=== PATIENT | female | born 1930 | race Caucasian/White ===

== ENCOUNTER → 2017-02-08 | Outpatient (CLI) | payer MEDICARE, OTHER ==
[~2017-02-08] VITALS: Ht 157.5 cm; Wt 70.7 kg
[~2017-02-08] MED LIST: CALC-1072 PO CHEW; CARV6.25 PO; CLOP75TA33 PO; LISI-621 PO; NITR0.4T39 SL; ONDA4TAB7 PO; PRAV80TA23 PO; PROP15DR OP; SALINE FLUSH 10ml SYRINGE ONE; UBID200C32 PO; VIT-10 PO; WARF5TAB6 PO
--- NOTE | 2017-02-10 08:47 | TREADF ---
DATE OF PROCEDURE February 08, 2017 PROCEDURE Treadmill Myoview. INDICATION Chest pain. IMPRESSION 1. Baseline EKG shows sinus rhythm with right bundle branch block and PVCs. 2. She walked a total of 5 minutes into stage II Eleazar protocol. 3. 85% predicted maximal heart rate was exceeded. 4. She reported no angina. 5. Hemodynamic response to exercise was appropriate. 6. 13.0 mCi of Myoview was given for rest images and 31.6 mCi for stress images. 7. There were no ischemic EKG changes. 8. There were no arrhythmias. 9. Nuclear perfusion images revealed normal coronary perfusion with no scar or ischemia. 10. Quantitative ejection fraction is 73%. MTDD
== END ==
LOC: IMA 13:14
PROVIDERS: ATTEND Internal Medicine Cardiovascular Disease
DX: I49.3 Ventricular premature depolarization (principal); I45.10 Unspecified right bundle-branch block; R07.2 Precordial pain
CPT/HCPCS: 78452; 93017; A9502

== ENCOUNTER → 2017-02-10 | Outpatient (CLI) | payer MEDICARE, OTHER ==
[~2017-02-10] MED LIST changes: -SALINE FLUSH 10ml SYRINGE ONE
--- NOTE | 2017-02-10 18:23 | ECHOF ---
DATE OF PROCEDURE 02/10/2017 INDICATION This is a two-dimensional echo with spectral Doppler, color-flow, and M-mode. It was obtained in a patient with chest pain. DESCRIPTION OF PROCEDURE Left atrial dimension is normal. Left ventricular end-diastolic dimension is normal. Left ventricular wall thickness is normal. LV systolic function is normal with ejection fraction of 65%. Right atrium is normal. Right ventricle is normal. Aortic root dimension is normal. Mitral valve annulus is calcified. Mitral valve leaflets are normal with mild mitral regurgitation. Aortic valve is a trileaflet structure with no stenosis. Trace of aortic insufficiency is present. Tricuspid valve shows mild tricuspid regurgitation with normal estimated pulmonary artery systolic pressure of 32. Pulmonary valve shows mild pulmonary insufficiency. There is no pericardial effusion. IMPRESSION 1. Normal LV systolic function with ejection fraction of about 65%. 2. Mitral annulus calcification with mild mitral regurgitation. 3. Trace of aortic insufficiency. 4. Mild tricuspid regurgitation with normal estimated pulmonary artery systolic pressure of 32. 5. Mild pulmonary insufficiency. MTDD
== END ==
LOC: IMA 13:51
PROVIDERS: ATTEND Internal Medicine Cardiovascular Disease
DX: I08.8 Other rheumatic multiple valve diseases (principal); R07.2 Precordial pain
CPT/HCPCS: 93306

== ENCOUNTER 2018-01-10 09:50 | Observation (INO) ==
--- OUTSIDE RECORDS SUMMARY | 2018-01-10 10:12 | External Medical Summary | Clinical Summary ---
:1930 Author Organization [facility] Address [address] [address] Phone Care Team Providers Name Role Phone Treva Monroy PA-C Primary Care Provider Allergies Active Allergy Reactions Severity Noted Date Comments Codeine Other (See Comments) 11/12/2012 "goofy" Rosuvastatin Other (See Comments) 01/26/2016 Muscle weakness/Myalgias Demerol Other (See Comments) 11/12/2012 "goofy" Atorvastatin Other (See Comments) 11/28/2013 Myalgias/Muscle Weakness Oxycodone Hcl Other (See Comments) 11/12/2012 "goofy" Current Medications Prescription Sig. Disp. Refills Start Date End Date Status Coenzyme Q10 (COQ-10) Take 1 capsule Active 200 MG CAPS by mouth daily. Reported on 09/29/2016 lisinopril Take 1 tablet 30 tablet 11 12/02/2014 Active (PRINIVIL,ZESTRIL) 20 MG (20 mg total) by tablet mouth nightly. Calcium Take 1 tablet by Active Carb-Cholecalciferol mouth. Reported (CALTRATE 600+D SOFT) on 09/29/2016 600-800 MG-UNIT CHEW polyethyl glycol-propyl 1 drop 3 (three) Active glycol (SYSTANE) 0.4-0.3 times daily as % ophthalmic solution needed. nitroglycerin Place 1 tablet 25 tablet 11 10/14/2015 Active (NITROQUICK) 0.4 MG SL (0.4 mg total) tablet under the tongue every 5 (five) minutes as needed for Chest pain (angina/chest pain). clopidogrel (PLAVIX) 75 Take 1 tablet 90 tablet 3 01/08/2016 Active MG tablet (75 mg total) by mouth daily. pravastatin (PRAVACHOL) Take 1 tablet 30 tablet 11 01/27/2016 Active 80 MG tabletIndications: (80 mg total) by Ischemic Heart Disease mouth at bedtime. Indications: Ischemic Heart Disease carvedilol (COREG) 6.25 Take 6.25 mg by Active MG tablet mouth daily. warfarin (COUMADIN) 5 MG Take 5 mg by Active tablet mouth. 1 tablet 3 days a week, 1/2 tablet 4 days a week. loratadine (CLARITIN) 10 Take 10 mg by Active MG tablet mouth as needed for Allergies. diphenhydrAMINE Take 25 mg by Active (BENADRYL) 25 mg capsule mouth every 6 (six) hours as needed for Itching. Active Problems Problem Noted Date Atrial fibrillation with RVR ([facility]) 01/26/2016 NSTEMI (non-ST elevated myocardial infarction) ([facility]) 10/12/2015 HTN (hypertension) 03/26/2015 Dyslipidemia 03/26/2015 CAD (coronary artery disease) 03/26/2015 Atrial fibrillation with rapid ventricular response ([facility]) 11/12/2012 ACS (acute coronary syndrome) ([facility]) 11/12/2012 Immunizations Name Dates Previously Given Next Due Influenza IIV3 PFree 08/14/2015, 08/15/2012 Pneumococcal Polysaccharide (23-valent) 11/13/2008 Family History Medical History Relation Name Comments Coronary art dis Sister #1 Sister #1 - is Alive, Bypass at 71 yrs No Known Problems Sister #2 Sister #2 - is Alive, Alive and well Arrhythmia Son Afib Coronary art dis Son CABG Relation Name Status Comments Father Mother Sister #1 Sister #2 Son Social History Tobacco Use Types Packs/Day Years Used Date Never Smoker Smokeless Tobacco: Never Used Alcohol Use Drinks/Week oz/Week Comments Yes Alcoholic Drinks/day: Yes/1 glass of Wine/occasionally Sex Assigned at Date Recorded Not on file Last Filed Vital Signs Vital Sign Reading Time Taken Blood Pressure 132/84 09/29/2016 10:19 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 Pulse 52 09/29/2016 10:19 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 Temperature 36.4 C (97.5 F) 01/27/2016 7:58 AM CDT Respiratory Rate 20 01/27/2016 7:58 AM CDT Oxygen Saturation 98% 01/27/2016 7:58 AM CDT Inhaled Oxygen Concentration - - Weight 74.3 kg (163 lb 12.8 oz) 09/29/2016 10:19 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 Height 160 cm (5' 3") 09/29/2016 10:19 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 Body Mass Index 29.02 09/29/2016 10:19 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 Plan of Treatment Health Maintenance Due Date Last Done Comments DTaP,Tdap,and Td Vaccines (1 - Tdap) 1950 Zoster Vaccine (#1) 1991 Annual Wellness Visit 12/21/1996 Pneumo-Adult (2 of 2 - PCV13) 11/13/2009 11/13/2008 Influenza Vaccine (#1) 2017 08/14/2015, 08/15/2012 Results Not on filefrom Last 3 Months
[2018-01-10] MEDS ORDERED: NITROGLYCERIN 0.4 MG SUBLINGUAL TABLET SL PRN (10:14)
[2018-01-10] MEDS ORDERED: SALINE FLUSH 10ml SYRINGE IVF PRN (10:14)
[2018-01-10] MEDS ORDERED: ASPIRIN 81 MG CHEWABLE TABLET PO ONE (10:14)
--- NOTE | 2018-01-10 10:14 | Emergency Department Report ---
Chest Pain HPI - General Chief Complaint: Chest Pain Stated Complaint: cp Time Seen by Provider: 01/10/18 10:02 Source: patient, family Mode of arrival: ambulatory Limitations: no limitations - History of Present Illness HPI narrative: Patient is an 87-year-old female, history of atrial fibrillation, history of prior cardiac catheterization with stenting 2015. Patient sees Dr. Sanabria now for cardiology. Patient presents the ER for evaluation of dizziness anterior chest pain. Patient got up was feeling mildly dizzy this morning, approximately 9:15 patient developed anterior chest pain, checked her blood pressure which she reports as 83/90. Patient took one nitroglycerin, her dizziness got worse, however she can't really tell me of her chest pain was resolved with that. Patient was brought to the ER on arrival patient currently having no chest pain. Patient has no nausea no vomiting no fevers no chills. Patient here for evaluation treatment MD complaint: chest pain Occurred At: home Onset (ago): minute(s) Time: 9:15 Duration: constant Onset: during rest Pain location: substernal, left chest, right chest Severity: moderate Relieving factors: nitroglycerin Aspirin Today: 81 mg x 4, provided by ED, provided at home Nitro Today: 0.4 mg x 1, complete relief - Related Data Home Medications Medication Instructions Recorded Confirmed Calcium Carbonate/Vitamin D3 1 tab PO CHEW DAILY #0 09/26/16 01/10/18 [Caltrate 600 + D Soft Chew Tab] Nitroglycerin 0.4 mg SL Q5MIN PRN #0 09/26/16 01/10/18 Propylene Glycol/Peg 400 [Systane 1 drop OP TID PRN #0 09/26/16 01/10/18 0.3-0.4% Eye Drops] Warfarin Sodium 5 mg PO 1700 #0 09/26/16 01/10/18 Aspirin [Aspirin EC] 81 mg PO DAILY 01/10/18 01/10/18 Citalopram [Celexa] 20 mg PO DAILY 01/10/18 01/10/18 Clopidogrel [Plavix] 75 mg PO DAILY 01/10/18 01/10/18 Coenzyme Q-10 [Co Q-10] 200 mg PO DAILY 01/10/18 01/10/18 Vit A/C/E AC/Znox/Cupric Oxide 1 tab PO DAILY 01/10/18 01/10/18 [Eye Vitamin-Minerals Tablet] Allergies Allergy/AdvReac Type Severity Reaction Status Date / Time rosuvastatin [From Crestor] Allergy Intermediate Verified 01/10/18 10:06 codeine Allergy Unknown VOMIT Verified 01/10/18 10:06 meperidine Allergy Unknown Verified 01/10/18 10:06 oxycodone Allergy Unknown Verified 01/10/18 10:06 Review of Systems Constitutional: Denies: fever, chills, weakness ENT: Denies: ear pain, throat pain, dental pain Cardiovascular: Reports: chest pain. Denies: palpitations, dyspnea on exertion Respiratory: Denies: cough, dyspnea, wheezes Gastrointestinal: Denies: abdominal pain, nausea, vomiting Genitourinary: Denies: dysuria, frequency Neurological: Denies: headache Psychiatric: Denies: anxiety, depression PFSH Patient Stated Medical History Cardiac Arrhythmia Yes: HX OF AFIB Coronary Artery Disease Yes Clinic Medical History (Last Updated 08/16/17 @ 13:51 by Lucila Jc RN) Depressive disorder (Chronic Medical) Hyperlipidemia (Chronic Medical) Hypertension (Chronic Medical) Atrial fibrillation (Chronic Medical) Surgical History: Cardiac catheterization 2016 with 1 stent Family History: Family History (Last Updated 08/16/17 @ 13:41 by Huma Fonseca RN) Father Heart attack High cholesterol Mother Heart attack High blood pressure - Social History Smoking status: Never smoker Substance use type: does not use Alcohol intake frequency: does not drink Course Vital Signs Temperature 97.8 F 01/10/18 09:52 Pulse Rate 61 01/10/18 09:52 Respiratory Rate 16 01/10/18 09:52 Blood Pressure 142/65 H 01/10/18 09:52 Pulse Oximetry 99 01/10/18 09:52 Temperature 97.8 F 01/10/18 09:52 Pulse Rate 62 01/10/18 11:15 Respiratory Rate 17 01/10/18 11:15 Blood Pressure 151/77 H 01/10/18 11:00 Pulse Oximetry 99 01/10/18 11:15 Chest Pain - MDM Narrative Medical decision making narrative: Patient currently chest pain-free, laboratories EKG chest x-ray currently noncontributory. Discussed case with Fifi Dupree, nurse practitioner Dr. Sanabria. She will admit patient observation status - Differential Diagnosis Likely: fracture of rib, pneumothorax, stable angina, unstable angina pectoris, atypical chest pain, st elevation myocardial infarction, costochondritis, chest pain, biliary colic - Medical Records Data Attestation: I reviewed the patient's medical records. - Lab Data Attestation: I reviewed the patient's lab results. Result diagrams: 01/10/18 10:26 01/10/18 10:26 Lab Results 01/10/18 01/10/18 01/10/18 Range/Units 10: 10: 10: WBC 6.8 (4.5-11.0) T/MM3 RBC 4.49 (4.00-5.20) M/MM3 Hgb 13.4 (12-16) GM/DL Hct 40.7 (36-46) % MCV 90.6 (80-100) UM3 MCH 29.8 (26-34) UUG MCHC 32.9 (31-37) GM/DL RDW Std Deviation 43.6 (36.9-50.2) FL Plt Count 235 (130-400) T/MM3 MPV 10.0 (9.4-12.4) UM3 Immature Gran % (Auto) 0.1 (0.0-0.5) % Neut % (Auto) 67.7 H (33-66) % Lymph % (Auto) 22.5 L (23-45) % [place] % (Auto) 6.5 (0-9.0) % Eos % (Auto) 2.8 (0-4) % Baso % (Auto) 0.4 (0-2) % Neut # (Auto) 4.6 (1.8-7.7) T/MM3 Lymph # (Auto) 1.5 (1-4.8) T/MM3 [place] # (Auto) 0.4 (0-0.8) T/MM3 Eos # (Auto) 0.2 (0-0.5) T/MM3 Baso # (Auto) 0.0 (0-0.2) T/MM3 Abs Immat Gran (auto) 0.01 (0.00-0.03) T/MM3 INR (0.99-1.21) Turbidity < 20 (0-20) Sodium 144 (134-144) MEQ/L Potassium 4.1 (3.6-5) MEQ/L Chloride 107 (98-107) MEQ/L Carbon Dioxide 28 (22-30) MEQ/L Anion Gap 9 (5-15) MEQ/L BUN 23.0 H (7-17) MG/DL Creatinine 0.9 (0.7-1.2) MG/DL GFR Calculation 59 BUN/Creatinine Ratio 26 (6-26) RATIO Glucose 94 (65-110) MG/DL Calculated Osmolality 281 H (261-280) MOSM/KG Calcium 9.4 (8.4-10.2) MG/DL Magnesium 1.9 (1.6-2.3) MG/DL Total Bilirubin 0.60 (0.20-1.30) MG/DL Icterus Index < 2 (0-7) AST 27 (14-36) U/L ALT 22 (9-52) U/L Alkaline Phosphatase 95 (38-126) U/L Troponin I < 0.012 (0-0.12) ng/ml B-Natriuretic Peptide 377 H (0-175) pg/mL Total Protein 7.0 (6.3-8.2) G/DL Albumin 3.9 (3.5-5.0) G/DL Globulin 3.1 (2.4-3.6) G/DL Albumin/Globulin Ratio 1.3 (1.1-2.2) RATIO Specimen Hemolysis 40 H (0-25) 01/10/ Range/Units 10:26 WBC (4.5-11.0) T/MM3 RBC (4.00-5.20) M/MM3 Hgb (12-16) GM/DL Hct (36-46) % MCV (80-100) UM3 MCH (26-34) UUG MCHC (31-37) GM/DL RDW Std Deviation (36.9-50.2) FL Plt Count (130-400) T/MM3 MPV (9.4-12.4) UM3 Immature Gran % (Auto) (0.0-0.5) % Neut % (Auto) (33-66) % Lymph % (Auto) (23-45) % [place] % (Auto) (0-9.0) % Eos % (Auto) (0-4) % Baso % (Auto) (0-2) % Neut # (Auto) (1.8-7.7) T/MM3 Lymph # (Auto) (1-4.8) T/MM3 [place] # (Auto) (0-0.8) T/MM3 Eos # (Auto) (0-0.5) T/MM3 Baso # (Auto) (0-0.2) T/MM3 Abs Immat Gran (auto) (0.00-0.03) T/MM3 INR 1.68 H (0.99-1.21) Turbidity (0-20) Sodium (134-144) MEQ/L Potassium (3.6-5) MEQ/L Chloride (98-107) MEQ/L Carbon Dioxide (22-30) MEQ/L Anion Gap (5-15) MEQ/L BUN (7-17) MG/DL Creatinine (0.7-1.2) MG/DL GFR Calculation BUN/Creatinine Ratio (6-26) RATIO Glucose (65-110) MG/DL Calculated Osmolality (261-280) MOSM/KG Calcium (8.4-10.2) MG/DL Magnesium (1.6-2.3) MG/DL Total Bilirubin (0.20-1.30) MG/DL Icterus Index (0-7) AST (14-36) U/L ALT (9-52) U/L Alkaline Phosphatase (38-126) U/L Troponin I (0-0.12) ng/ml B-Natriuretic Peptide (0-175) pg/mL Total Protein (6.3-8.2) G/DL Albumin (3.5-5.0) G/DL Globulin (2.4-3.6) G/DL Albumin/Globulin Ratio (1.1-2.2) RATIO Specimen Hemolysis (0-25) - Radiology Data Attestation: I reviewed the patient's radiology results. - EKG Data EKG #1 EKG attestation: Yes: I reviewed and interpreted this EKG. EKG shows normal: sinus rhythm Rate: normal Rhythm: NSR [place]/QRS: RBBB When compared to previous EKG there are: no significant changes Interpretation: no acute changes Disposition Clinical Impression: Chest pain Qualifiers: Chest pain type: other chest pain Qualified Code(s): R07.89 - Other chest pain Disposition: 02 To [facility] Condition: Stable Time of Disposition: 11:21 - Seen By: physician
--- NOTE | 2018-01-10 10:37 | XRay Report ---
Indication: anterior chest pain PROCEDURE: XR chest 1V: Encounter: Initial Comparison: None FINDINGS: The lungs are clear. There is no abnormal airspace opacity, pleural effusion or pneumothorax identified. The heart size is at the upper limits of normal. The pulmonary vasculature and mediastinum are within normal limits. No significant skeletal abnormality is seen. IMPRESSION: No acute cardiopulmonary abnormality. .
[2018-01-10 11:37] VITALS: BMI 29.5
[2018-01-10 11:45] VITALS: PULSE 60; RESP 14; TEMP 98.2; O2SAT 98
[2018-01-10 12:09] VITALS: BP 164/72
--- NOTE | 2018-01-10 12:57 | Cardiology History & Physical ---
History of Present Illness Chief complaint: chest pain HPI: Maxime is a 87 year old female who is known to Dr. Sanabria's practice with a history of PAF, CAD with stent to LAD in 2014, HTN and HLD who presented the ED for evaluation of dizziness and chest pain. She reportedly got up and was feeling poorly so she checked her blood pressure which she reports as 183/90, she took a nitro approximately 0915 which made her feel dizzy with anterior chest pain, and headache. She was brought to the ED, on arrival patient had no chest pain. EKG was non ischemic, Lab work included troponin was unremarkable except BUN of 23. I was contacted for admission to Dr. Sanabria for admission for observation to rule out ACS. HC 09/2015: Left main mild, LAD 80%, S/P [id number] Resolute stent, first diagonal mild, left circ mild, RCA dominant with 40% ostial stenosis. Echo 02/2017: EF65%, MAC, mild MR, Trace AI, mild TR, PAP 32mmhg, trace PI. MPI 02/2017: EF 73%, normal perfusion, no scar or ischemia. She is examined in her room. She reports recent sinus drainage which she has been taking Coricidin HBP at bedtime for help being able to sleep. She also reports stopping Lisinopril 20mg daily after last appointment in 08/2017. ( Clinic not does not show this as stopped.) She denies fever, chills, sore throat , cough, dyspnea, N/V/D, dysuria. She reports walking across the [place] [facility] multiple times daily visiting her in nursing care with chest pain or dyspnea. Review of Systems - Constitutional Constitutional: Absent: chills, fatigue, fever(s) - EENMT Eyes: Absent: change in vision Balance: Absent: vertigo Mouth/Throat: Absent: sore throat - Cardiovascular Cardiovascular: Present: chest pain. Absent: palpitations, syncope, dyspnea on exertion, orthopnea - Respiratory Respiratory: Absent: cough, dyspnea, dyspnea on exertion - Gastrointestinal Gastrointestinal: Absent: abdominal pain, nausea, vomiting - Genitourinary Genitourinary: Absent: dysuria - Integumentary/Breasts Integumentary: Absent: rash - Neurological Neurological: Absent: dizziness - Endocrine Endocrine: Absent: palpitations PFSH Patient Stated Medical History Cataracts Yes Angina Yes Cardiac Arrhythmia Yes: HX OF AFIB Coronary Artery Disease Yes Hypertension Yes Clinic Medical History (Last Updated 08/16/17 @ 13:51 by Lucila Jc RN) Depressive disorder (Chronic Medical) Hyperlipidemia (Chronic Medical) Hypertension (Chronic Medical) Atrial fibrillation (Chronic Medical) Surgical History: Cardiac catheterization 2014 with stent LAD. Knee surgery. Appendectomy. Tonsillectomy Family History: Family History (Last Updated 08/16/17 @ 13:41 by Huma Fonseca RN) Father Heart attack, cause of High cholesterol Mother Heart attack, cause of High blood pressure - Social History Smoking status: Never smoker Substance use type: does not use Alcohol intake: current Alcohol intake frequency: holidays/special occasions only Household members: none Current occupational status: retired Current residence: Independent Living Medications Home Medications Medication Instructions Recorded Confirmed Type Calcium Carbonate/Vitamin D3 1 tab PO CHEW DAILY #0 09/26/16 01/10/18 History [Caltrate 600 + D Soft Chew Tab] Nitroglycerin 0.4 mg SL Q5MIN PRN #0 09/26/16 01/10/18 History Propylene Glycol/Peg 400 [Systane 1 drop OP TID PRN #0 09/26/16 01/10/18 History 0.3-0.4% Eye Drops] Warfarin Sodium 5 mg PO 1700 #0 09/26/16 01/10/18 History Citalopram [Celexa] 20 mg PO DAILY 01/10/18 01/10/18 History Coenzyme Q-10 [Co Q-10] 200 mg PO DAILY 01/10/18 01/10/18 History Lisinopril [Prinivil] 20 mg PO DAILY #30 tab 01/10/18 Rx Nitroglycerin [Nitrostat] 0.4 mg SL Q5MIN3 PRN #25 tab 01/10/18 Rx Vit A/C/E AC/Znox/Cupric Oxide 1 tab PO DAILY 01/10/18 01/10/18 History [Eye Vitamin-Minerals Tablet] Allergies Allergy/AdvReac Type Severity Reaction Status Date / Time rosuvastatin [From Crestor] Allergy Intermediate Verified 01/10/18 11:43 codeine Allergy Unknown VOMIT Verified 01/10/18 11:43 meperidine Allergy Unknown Dizziness Verified 01/10/18 11:43 oxycodone Allergy Unknown Dizziness Verified 01/10/18 11:43 Exam Vital signs: Temperature 98.2 F 01/10/18 11:44 Pulse Rate 60 01/10/18 12:00 Respiratory Rate 14 01/10/18 11:44 Blood Pressure 164/72 H 01/10/18 12:00 Pulse Oximetry 98 01/10/18 11:44 - Constitutional no acute distress, well nourished, cooperative - Routine HEENT Exam Head: Present: normocephalic ENT: Present: mucous membranes dry - Routine Neck Exam Absent: JVD, carotid bruit - Routine Chest/Breast/Axilla Exam Chest wall: Absent: tenderness - Routine Respiratory Exam Present: CTA bilaterally. Absent: rales, wheezes - Routine Cardiovascular Exam Present: RRR, murmur (I/). Absent: JVD - Routine Abdominal Exam Present: soft, normoactive bowel sounds - Routine Extremities Exam Present: no edema - Routine Skin Exam Present: intact, dry, warm - Routine Neurological Exam Present: alert, oriented X3 - Routine Psychiatric Exam Present: normal affect, normal thought process Results 01/10/18 10:26 01/10/18 10:26 Intake and Output 01/09/18 01/10/18 01/10/18 22:59 06:59 14:59 Intake Total 500 / 500 Balance 500 / 500 Intake: IV 500 / 500 NS 500ml 500 ml @ 500 mls/hr IV 500 / 500 .Q1H ONE Rx#:[id number] Other: # Voids 1 Weight 166 lb 10.711 oz Patient Weight 01/11/18 06:59 Weight 166 lb 10.711 oz - Imaging and Cardiology Echo: report reviewed EKG results: image reviewed Imaging & Cardiology Narrative: Date of Exam: 01/10/18 Ordering Provider: Kunal Soto MD Type of Exam(s): XR chest 1V Reason for Exam(s): anterior chest pain Indication: anterior chest pain PROCEDURE: XR chest 1V: Encounter: Initial Comparison: None FINDINGS: The lungs are clear. There is no abnormal airspace opacity, pleural effusion or pneumothorax identified. The heart size is at the upper limits of normal. The pulmonary vasculature and mediastinum are within normal limits. No significant skeletal abnormality is seen. IMPRESSION: No acute cardiopulmonary abnormality. 01/10/18 14:11 01/11/18 12:02 Date of Exam: 01/10/18 Type of Exam(s): US echo doppler complete DATE OF PROCEDURE January 10, 2018 This is a two-dimensional echo with spectral Doppler, color-flow and M-mode. It was obtained in a patient with chest pain. Left atrium is mildly dilated. Left ventricular end-diastolic dimension is normal. Left ventricle wall thickness is normal. LV systolic function is normal with ejection fraction of 70%. Right atrium is dilated. Right ventricle is normal. Aortic root dimension is normal. Mitral annulus is calcified. Mitral valve leaflets are normal with mild mitral regurgitation. Aortic valve is a trileaflet structure with no stenosis. Mild aortic insufficiency is present. Tricuspid valve shows [id number] tricuspid regurgitation with mild pulmonary hypertension with estimated pulmonary artery systolic pressure of 42. Pulmonary valve shows mild pulmonary insufficiency. There is no pericardial effusion. IMPRESSION 1. Mild biatrial dilation. 2. Normal LV systolic function with ejection fraction of 70%. 3. Mitral annulus calcification with mild mitral regurgitation. 4. Mild aortic insufficiency. 5. [id number] tricuspid regurgitation with mild pulmonary hypertension with estimated pulmonary artery systolic pressure of 42. 6. Mild pulmonary insufficiency. EKG interpretations - EKG EKG results cardiology: sinus rhythm - Blocks, axis, hypertrophy, ST abn AV and intraventricular conduction: right bundle branch block (fixed/ intermittent, complete/incomplete) Hospital Course This is a general summary of the patient's hospital course. For more details refer to the complete medical record. Assessment and Plan - Attestation Attestation Narrative: 01/17/18 16:32 Recommendation After examining the patient I agree with the above assessment. I am involved in the formulation of the patient's plan of care. - Assessment and Plan (1) Chest pain Status: Acute Resolved.Does not have angina with physical activity. - BP elevated, has been taking Coricidin HBP at bedtime for help being able to sleep. - She also reports stopping Lisinopril 20mg daily. - Trend serial troponin - Repeat EKG with next draw - EKG SR (2) Atherosclerotic heart disease of [place] coronary artery without angina pectoris Status: Chronic continue current therapy with routine monitoring (3) Hypertension Status: Chronic Sub optimal control - restart Lisinopril (4) Hyperlipidemia Status: Chronic (5) Atrial fibrillation Status: Chronic Takes Warfarin, we manage, INR 1.68 today - Assessment and Plan Chest pain: Resolved.Does not have angina with physical activity. - BP elevated, has been taking Coricidin HBP at bedtime for help being able to sleep. - She also reports stopping Lisinopril 20mg daily. - Trend serial troponin - Repeat EKG with next draw - EKG SR CAD HTN:Sub optimal control - restart Lisinopril PAF: Takes Warfarin, we manage, INR 1.68 today
[2018-01-10] MEDS ORDERED: LISINOPRIL 20 MG TABLET PO SCH (14:00)
[2018-01-10] MEDS ORDERED: PNEUMOCOCCAL 13 VACCINE 0.5ml INJECTION IM ONE (14:29)
[2018-01-10] MEDS ORDERED: PNEUMOCOCCAL VAC ADMIN CHARGE INJ ONE (15:14)
--- NOTE | 2018-01-10 17:41 | Discharge Summary ---
<Fifi Dupree - Last Filed: 01/11/18 12:02> Discharge Information Date of admission: 01/10/18 11:09 Anticipated date of discharge: 01/10/18 Attending Physician: Hayden Sanabria MD Primary care physician: Lara Penny MD - Discharge Diagnosis (1) Chest pain Status: Acute (2) Atherosclerotic heart disease of [place] coronary artery without angina pectoris Status: Chronic (3) Hypertension Status: Chronic (4) Hyperlipidemia Status: Chronic (5) Atrial fibrillation Status: Chronic - Laboratory Labs: Laboratory Results - last 24 hr 01/10/18 01/10/18 01/10/18 10:26 10:26 10:26 WBC 6.8 RBC 4.49 Hgb 13.4 Hct 40.7 MCV 90.6 MCH 29.8 MCHC 32.9 RDW Std Deviation 43.6 Plt Count 235 MPV 10.0 Immature Gran % (Auto) 0.1 Neut % (Auto) 67.7 H Lymph % (Auto) 22.5 L [place] % (Auto) 6.5 Eos % (Auto) 2.8 Baso % (Auto) 0.4 Neut # (Auto) 4.6 Lymph # (Auto) 1.5 [place] # (Auto) 0.4 Eos # (Auto) 0.2 Baso # (Auto) 0.0 Abs Immat Gran (auto) 0.01 INR Turbidity < 20 Sodium 144 Potassium 4.1 Chloride 107 Carbon Dioxide 28 Anion Gap 9 BUN 23.0 H Creatinine 0.9 GFR Calculation 59 BUN/Creatinine Ratio 26 Glucose 94 Calculated Osmolality 281 H Calcium 9.4 Magnesium 1.9 Total Bilirubin 0.60 Icterus Index < 2 AST 27 ALT 22 Alkaline Phosphatase 95 Troponin I < 0.012 B-Natriuretic Peptide 377 H Total Protein 7.0 Albumin 3.9 Globulin 3.1 Albumin/Globulin Ratio 1.3 TSH 1.09 Specimen Hemolysis 40 H 01/10/18 01/10/18 10:26 14:25 WBC RBC Hgb Hct MCV MCH MCHC RDW Std Deviation Plt Count MPV Immature Gran % (Auto) Neut % (Auto) Lymph % (Auto) [place] % (Auto) Eos % (Auto) Baso % (Auto) Neut # (Auto) Lymph # (Auto) [place] # (Auto) Eos # (Auto) Baso # (Auto) Abs Immat Gran (auto) INR 1.68 H Turbidity Sodium Potassium Chloride Carbon Dioxide Anion Gap BUN Creatinine GFR Calculation BUN/Creatinine Ratio Glucose Calculated Osmolality Calcium Magnesium Total Bilirubin Icterus Index AST ALT Alkaline Phosphatase Troponin I < 0.012 B-Natriuretic Peptide Total Protein Albumin Globulin Albumin/Globulin Ratio TSH Specimen Hemolysis < 15 History of Present Illness HPI: Maxime is a 87 year old female who is known to Dr. Sanabria's practice with a history of PAF, CAD with stent to LAD in 2014, HTN and HLD who presented the ED for evaluation of dizziness and chest pain. She reportedly got up and was feeling poorly so she checked her blood pressure which she reports as 183/90, she took a nitro approximately 0915 which made her feel dizzy with anterior chest pain, and headache. She was brought to the ED, on arrival patient had no chest pain. EKG was non ischemic, Lab work included troponin was unremarkable except BUN of 23. I was contacted for admission to Dr. Sanabria for admission for observation to rule out ACS. HC 09/2015: Left main mild, LAD 80%, S/P [id number] Resolute stent, first diagonal mild, left circ mild, RCA dominant with 40% ostial stenosis. Echo 02/2017: EF65%, MAC, mild MR, Trace AI, mild TR, PAP 32mmhg, trace PI. MPI 02/2017: EF 73%, normal perfusion, no scar or ischemia. She is examined in her room. She reports recent sinus drainage which she has been taking Coricidin HBP at bedtime for help being able to sleep. She also reports stopping Lisinopril 20mg daily after last appointment in 08/2017. ( Clinic not does not show this as stopped.) She denies fever, chills, sore throat , cough, dyspnea, N/V/D, dysuria. She reports walking across the [place] [facility] multiple times daily visiting her in nursing care with chest pain or dyspnea. Hospital Course This is a general summary of the patient's hospital course. For more details refer to the complete medical record. Hospital course: Chest pain: Resolved.Does not have angina with physical activity. - BP elevated, has been taking Coricidin HBP at bedtime for help being able to sleep. - She also reports stopping Lisinopril 20mg daily. - Trend serial troponin - Repeat EKG with next draw - EKG SR CAD HTN:Sub optimal control - restart Lisinopril PAF: Takes Warfarin, we manage, INR 1.68 today Time spent with patient: less than 15 minutes Resuscitation Status: Full Code Exam Vital signs: Temperature 98.2 F 01/10/18 11:44 Pulse Rate 60 01/10/18 12:00 Respiratory Rate 14 01/10/18 11:44 Blood Pressure 164/72 H 01/10/18 12:00 Pulse Oximetry 98 01/10/18 11:44 Results 01/10/18 10:26 01/10/18 10:26 Cardiac Enzymes 01/10/18 Range/Units 14:25 Troponin I < 0.012 (0-0.12) ng/ml Intake and Output 01/10/18 01/10/18 01/10/18 06:59 14:59 22:59 Intake Total 500 / 500 Balance 500 / 500 Intake: IV 500 / 500 NS 500ml 500 ml @ 500 mls/hr IV 500 / 500 .Q1H ONE Rx#:[id number] Other: Urine Appearance Clear Urine Color Pale Yellow Urine Odor Normal # Voids 1 Weight 166 lb 10.711 oz Patient Weight 01/11/18 06:59 Weight 166 lb 10.711 oz - Imaging and Cardiology Echo: report reviewed EKG results: image reviewed Imaging & Cardiology Narrative: Date of Exam: 01/10/18 Ordering Provider: Kunal Soto MD Type of Exam(s): XR chest 1V Reason for Exam(s): anterior chest pain Indication: anterior chest pain PROCEDURE: XR chest 1V: Encounter: Initial Comparison: None FINDINGS: The lungs are clear. There is no abnormal airspace opacity, pleural effusion or pneumothorax identified. The heart size is at the upper limits of normal. The pulmonary vasculature and mediastinum are within normal limits. No significant skeletal abnormality is seen. IMPRESSION: No acute cardiopulmonary abnormality. 01/10/18 17:39 01/11/18 12:03 Date of Exam: 01/10/18 Type of Exam(s): US echo doppler complete DATE OF PROCEDURE January 10, 2018 This is a two-dimensional echo with spectral Doppler, color-flow and M-mode. It was obtained in a patient with chest pain. Left atrium is mildly dilated. Left ventricular end-diastolic dimension is normal. Left ventricle wall thickness is normal. LV systolic function is normal with ejection fraction of 70%. Right atrium is dilated. Right ventricle is normal. Aortic root dimension is normal. Mitral annulus is calcified. Mitral valve leaflets are normal with mild mitral regurgitation. Aortic valve is a trileaflet structure with no stenosis. Mild aortic insufficiency is present. Tricuspid valve shows [id number] tricuspid regurgitation with mild pulmonary hypertension with estimated pulmonary artery systolic pressure of 42. Pulmonary valve shows mild pulmonary insufficiency. There is no pericardial effusion. IMPRESSION 1. Mild biatrial dilation. 2. Normal LV systolic function with ejection fraction of 70%. 3. Mitral annulus calcification with mild mitral regurgitation. 4. Mild aortic insufficiency. 5. [id number] tricuspid regurgitation with mild pulmonary hypertension with estimated pulmonary artery systolic pressure of 42. 6. Mild pulmonary insufficiency. - EKG Interpretation EKG: sinus rhythm (RBBB) Discharge Plan - Med Rec/Dispo Referrals/Follow Up: Hayden Sanabria MD [Physician] - 2 Weeks [facility] Instructions: Chest Pain (DC) Prescriptions: New Lisinopril [Prinivil] 20 mg PO DAILY #30 tab Nitroglycerin [Nitrostat] 0.4 mg SL Q5MIN3 PRN #25 tab PRN Reason: Chest Pain Continue Warfarin Sodium 5 mg PO 1700 #0 Citalopram [Celexa] 20 mg PO DAILY Discontinued Clopidogrel [Plavix] 75 mg PO DAILY Aspirin [Aspirin EC] 81 mg PO DAILY No Action Nitroglycerin 0.4 mg SL Q5MIN PRN #0 PRN Reason: CHEST TIGHTNESS Vit A/C/E AC/Znox/Cupric Oxide [Eye Vitamin-Minerals Tablet] 1 tab PO DAILY Coenzyme Q-10 [Co Q-10] 200 mg PO DAILY Calcium Carbonate/Vitamin D3 [Caltrate 600 + D Soft Chew Tab] 1 tab PO CHEW DAILY #0 Propylene Glycol/Peg 400 [Systane 0.3-0.4% Eye Drops] 1 drop OP TID PRN #0 PRN Reason: PRN ORDERS - Disposition 01 Discharged Home, Self-Care - Dismissal Complete Discharge Instructions are:: Complete <Hayden Sanabria - Last Filed: 01/17/18 16:39> Discharge Information Date of admission: 01/10/18 11:09 Attending Physician: Hayden Sanabria MD Primary care physician: Lara Penny MD - Discharge Diagnosis (1) Chest pain Status: Acute (2) Atherosclerotic heart disease of [place] coronary artery without angina pectoris Status: Chronic (3) Hypertension Status: Chronic (4) Hyperlipidemia Status: Chronic (5) Atrial fibrillation Status: Chronic Hospital Course This is a general summary of the patient's hospital course. For more details refer to the complete medical record. Exam Vital signs: Temperature 98.2 F 01/10/18 11:44 Pulse Rate 60 01/10/18 12:00 Respiratory Rate 14 01/10/18 11:44 Blood Pressure 164/72 H 01/10/18 12:00 Pulse Oximetry 98 01/10/18 11:44 Results 01/10/18 10:26 01/10/18 10:26 Attestation Narriative - Attestation Attestation Narrative: 01/17/18 16:39 Recommendation After examining the patient I agree with the above assessment. I am involved in the formulation of the patient's plan of care.
--- NOTE | 2018-01-11 10:49 | Echocardiogram ---
DATE OF PROCEDURE January 10, 2018 This is a two-dimensional echo with spectral Doppler, color-flow and M-mode. It was obtained in a patient with chest pain. Left atrium is mildly dilated. Left ventricular end-diastolic dimension is normal. Left ventricle wall thickness is normal. LV systolic function is normal with ejection fraction of 70%. Right atrium is dilated. Right ventricle is normal. Aortic root dimension is normal. Mitral annulus is calcified. Mitral valve leaflets are normal with mild mitral regurgitation. Aortic valve is a trileaflet structure with no stenosis. Mild aortic insufficiency is present. Tricuspid valve shows [id number] tricuspid regurgitation with mild pulmonary hypertension with estimated pulmonary artery systolic pressure of 42. Pulmonary valve shows mild pulmonary insufficiency. There is no pericardial effusion. IMPRESSION 1. Mild biatrial dilation. 2. Normal LV systolic function with ejection fraction of 70%. 3. Mitral annulus calcification with mild mitral regurgitation. 4. Mild aortic insufficiency. 5. [id number] tricuspid regurgitation with mild pulmonary hypertension with estimated pulmonary artery systolic pressure of 42. 6. Mild pulmonary insufficiency. MTDD
== END 2018-01-10 18:35 | disposition home or self-care (01) ==
LOC: ED 09:50 → SRG 09:50
PROVIDERS: ADMIT Internal Medicine Cardiovascular Disease; ATTEND Internal Medicine Cardiovascular Disease